=== PATIENT | male | born 1985 | race African-American/Black ===

== ENCOUNTER → 2016-12-30 | Outpatient (CLI) | payer BC ==
--- NOTE | 2017-01-02 15:08 | POLYSOMNOGRAPH REPORT ---
CLINICAL DATA: A 31-year-old male with BMI of 32.7 referred by myself and Dr. Al for possible sleep apnea. He does have uvular swelling and difficulty swallowing. On the evening of 12/31/2016, a home sleep apnea was performed using a Q.branch type 3 monitor. RECORDING RESULTS: Total recording time was 9 hours. The patient's monitoring time and estimated sleep time was 5.4 hours. RESPIRATORY DATA: Mild sleep apnea was documented. The YUAN was 8.6. There were 13 obstructive and 1 central apneic episode. There were 32 hypopneic episodes. The longest respiratory event was 40 seconds. OXIMETRY DATA: No significant hypoxemia was seen. Oxygen raj was 86%. Mean saturation was 95%. Time below 89% was 1 minute. HEART RATE DATA: Heart rates ranged from 47 to 70 beats per minute. SNORING DATA: Snoring was recorded throughout the night. IMPRESSION: Very mild sleep apnea/hypopnea with an YUAN of 8.6. RECOMMENDATIONS: The patient will be seen back in the sleep clinic to review options for treatment. KIANA
== END ==
LOC: C.NEUR 11:00
PROVIDERS: ATTEND Internal Medicine Pulmonary Disease
DX: R53.83 Other fatigue (principal); G47.33 Obstructive sleep apnea (adult) (pediatric); R06.83 Snoring

== ENCOUNTER → 2017-06-05 | Outpatient (CLI) | payer BC ==
[2017-06-05 18:26] LABS: BLOOD UREA NITROGEN 11 mg/dl (7-18); BUN/CREATININE RATIO 8.7 (10-20); CALCIUM 9.1 mg/dl (8.5-10.1); CARBON DIOXIDE 29 mmol/L (21-32); CHLORIDE 105 mmol/L (98-107); CREATININE 1.26 mg/dl (0.60-1.40); GLUCOSE 85 mg/dl (70-99); SODIUM 139 mmol/L (136-145)
== END | disposition home or self-care (01) ==
LOC: C.LABMFLN 14:52
PROVIDERS: ATTEND Family Medicine
DX: I10 Essential (primary) hypertension (principal)

== ENCOUNTER → 2017-12-07 | Outpatient (CLI) | payer BC ==
[2017-12-07 18:12] LABS: ALT/SGPT 35 U/L (12-78); BLOOD UREA NITROGEN 13 mg/dl (7-18); CALCIUM 9.5 mg/dl (8.5-10.1); CARBON DIOXIDE 27 mmol/L (21-32); CREATININE 1.32 mg/dl (0.60-1.40); GLUCOSE 92 mg/dl (70-99); POTASSIUM 3.8 mmol/L (3.5-5.1); SODIUM 139 mmol/L (136-145)
[2017-12-07 18:24] LABS: CHOLESTEROL 190 mg/dl (0-200); LDL CHOLESTEROL CALCULATED 125 mg/dl
== END | disposition home or self-care (01) ==
LOC: C.LABMFLN 15:03
PROVIDERS: ATTEND Family Medicine
DX: Z13.220 Encounter for screening for lipoid disorders (principal); Z13.1 Encounter for screening for diabetes mellitus; E04.9 Nontoxic goiter, unspecified